=== PATIENT | female | born 1995 | race Caucasian/White ===

== ENCOUNTER 2020-09-08 18:47 | Inpatient (IN) | payer MEDICAID ==
[~2020-09-08] VITALS: Ht 157.5 cm; Wt 86.2 kg
[2020-09-08] MEDS ORDERED: LACTATED RINGERS 1,000 ML IV SCH (19:30)
[2020-09-08] MEDS ORDERED: MISOPROSTOL 100MCG TABLET VG SCH (19:30)
[2020-09-08] MEDS ORDERED: NALOXONE HCL 0.4 MG/ML 1ML VIAL IM PRN (19:30)
[2020-09-08] MEDS ORDERED: METHYLERGONOVINE MALEATE 0.2 MG/ML IM PRN (19:30)
[2020-09-08] MEDS ORDERED: DEXT 5%/LR + PITOCIN 20UNITS/L 1,000 ML IV SCH ×2 (19:30→23:30)
[2020-09-08] MEDS ORDERED: CARBOPROST TROMETHAMINE 250 MCG/ML AMPUL IM PRN (19:30)
[2020-09-08] MEDS ORDERED: MORPHINE SULFATE/PF 1MG/ML 10ML AMP ONE (19:34)
[2020-09-08] MEDS ORDERED: FENTANYL CITRATE/PF 50MCG/ML 2ML VIAL ONE (19:34)
[2020-09-08] MEDS ORDERED: PHENYLEPHRINE HCL 10 MG/ML 1ML (IV VIAL) IV ONE (19:35)
[2020-09-08] MEDS ORDERED: ONDANSETRON HCL 4MG/2ML INJ ONE (19:35)
[2020-09-08] MEDS ORDERED: EPHEDRINE SULFATE 50MG/ML VIAL ONE (19:35)
[2020-09-08] MEDS ORDERED: OXYTOCIN 10 UNITS/ML 1ML ONE ×2 (19:35→21:28)
[2020-09-08] MEDS ORDERED: CEFAZOLIN SODIUM 1000MG/VIAL ONE (19:35)
[2020-09-08] MEDS ORDERED: GLYCOPYRROLATE 0.2 MG/ML 2ML VIAL ONE (19:35)
[2020-09-08] MEDS ORDERED: CITRIC ACID/SODIUM CITRATE SOLN 30ML UDC PO NR (20:00)
[2020-09-08 20:26] LABS: BASOPHILS % 0.3 % (0.0-2.0); EOSINOPHILS % 0.7 % (0.0-5.0); HEMATOCRIT. 38.3 % (36.0-48.0); HEMOGLOBIN. 13.1 g/dL (12.0-16.0); LYMPHOCYTES % 20.7 % (20.0-50.0); MEAN CORPUSCULAR HEMOGLOBIN 31.3 pg (28.0-32.0); MEAN CORPUSCULAR VOLUME 91.4 fL (81.0-99.0); MEAN PLATELET VOLUME 9.5 fl (7.4-10.4); MONOCYTES % 6.8 % (2.0-8.0); NEUTROPHILS % 71.5 % (40.0-76.0); PLATELET 210 x1000/uL (130-400); RED BLOOD CELL COUNT 4.19 mill/uL (4.2-5.4)
[2020-09-08 20:36] LABS: INR 0.9; PARTIAL THROMBOPLASTIN TIME 27.3 sec (23.4-31.0); PROTHROMBIN TIME 9.8 sec (9.6-11.0)
[2020-09-08 20:38] LABS: CLARITY URINE CLEAR (CLEAR); COLOR URINE YELLOW (YELLOW); KETONES URINE TRACE (NEGATIVE); LEUKOCYTE ESTERASE URINE NEGATIVE (NEGATIVE); NITRITE URINE NEGATIVE (NEGATIVE); OCCULT BLOOD URINE NEGATIVE (NEGATIVE); PROTEIN URINE NEGATIVE (NEGATIVE); SPECIFIC GRAVITY URINE 1.022 (1.005-1.030)
[2020-09-08] MEDS ORDERED: KETOROLAC 60MG/2ML VIAL IM ONE (21:27)
[2020-09-08] MEDS ORDERED: DIPHENHYDRAMINE 50MG/ML VIAL ONE (21:27)
[2020-09-08] MEDS ORDERED: NALOXONE HCL 0.4 MG/ML 1ML VIAL IV PRN (21:30)
[2020-09-08] MEDS ORDERED: BUTORPHANOL TARTRATE 2 MG/ML VIAL IV PRN (21:30)
[2020-09-08] MEDS ORDERED: DIPHENHYDRAMINE 50MG/ML VIAL IV PRN (21:30)
[2020-09-08 21:46] LABS: *AMPHETAMINES SCREEN URINE NEGATIVE (NEGATIVE); *BARBITURATES SCREEN URINE NEGATIVE (NEGATIVE); *BENZODIAZEPINES SCREEN URINE NEGATIVE (NEGATIVE)
[2020-09-08 21:47] LABS: *COCAINE SCREEN URINE NEGATIVE (NEGATIVE); CANNABINOID URINE SCREEN NEGATIVE (NEGATIVE); METHADONE URINE SCREEN NEGATIVE (NEGATIVE); OPIATES URINE SCREEN NEGATIVE (NEGATIVE); PHENCYCLIDINE URINE SCREEN NEGATIVE (NEGATIVE)
[2020-09-08 21:52] LABS: HEPATITIS B SURFACE ANTIGEN NEGATIVE
[2020-09-08] MEDS ORDERED: ONDANSETRON HCL 4MG/2ML INJ IV PRN (23:15)
[2020-09-08] MEDS ORDERED: DIPHENHYDRAMINE 25MG CAPSULE PO PRN (23:15)
[2020-09-08] MEDS ORDERED: HEMORRHOIDAL SUPP PR PRN (23:15)
[2020-09-08] MEDS ORDERED: HYDROCODONE/ACETAMINOPHEN 5/325MG TABLET PO PRN (23:15)
[2020-09-08] MEDS ORDERED: BISACODYL 10MG SUPP PR PRN (23:15)
[2020-09-08] MEDS ORDERED: IBUPROFEN 400MG TABLET PO PRN (23:15)
[2020-09-09 00:15] VITALS: BP 123/79
[2020-09-09] MEDS: KETOROLAC 30MG/ML VIAL IV SCH ×2 (01:29→08:49)
[2020-09-09 01:30] VITALS: BP 109/55
[2020-09-09 04:00] VITALS: BP 111/59
[2020-09-09 07:30] VITALS: BP 114/65
[2020-09-09 08:36] LABS: BASOPHILS % 0.2 % (0.0-2.0); EOSINOPHILS % 0.6 % (0.0-5.0); HEMOGLOBIN. 10.5 g/dL (12.0-16.0); LYMPHOCYTES % 18.7 % (20.0-50.0); MEAN CORPUSCULAR VOLUME 91.3 fL (81.0-99.0); MEAN PLATELET VOLUME 9.2 fl (7.4-10.4); MONOCYTES % 7.1 % (2.0-8.0); NEUTROPHILS % 73.4 % (40.0-76.0); PLATELET 169 x1000/uL (130-400); RED BLOOD CELL COUNT 3.29 mill/uL (4.2-5.4); RED CELL DISTRIBUTION WIDTH 14.2 % (11.6-14.6)
[2020-09-09] MEDS: SIMETHICONE 80MG TABLET CHEW PO SCH ×4 (08:48→20:39)
[2020-09-09] MEDS: MAGNESIUM/ALUMINUM HYDROXIDE/SIMETHICONE 30ML UDC PO SCH ×4 (08:48→20:36)
[2020-09-09] MEDS: PRENATAL VIT/FE FUMARATE/FA TABLET PO SCH (08:48)
[2020-09-09] MEDS: FERROUS SULFATE 325MG TABLET PO SCH ×3 (08:49→18:09)
[2020-09-09] MEDS: LANOLIN OINT 7GM TUBE TOP PRN (11:25)
[2020-09-09 15:30] VITALS: BP 121/66
[2020-09-09] MEDS: IBUPROFEN 800MG TABLET PO PRN (18:09)
[2020-09-09 20:00] VITALS: BP 121/70
[2020-09-09] MEDS: DOCUSATE SODIUM 100MG CAPSULE PO SCH (20:36)
[2020-09-10] MEDS: IBUPROFEN 800MG TABLET PO PRN ×4 (04:15→21:04)
[2020-09-10 04:45] VITALS: BP 115/66
[2020-09-10 08:15] VITALS: BP 125/70
[2020-09-10] MEDS: FERROUS SULFATE 325MG TABLET PO SCH ×3 (08:53→18:16)
[2020-09-10] MEDS: PRENATAL VIT/FE FUMARATE/FA TABLET PO SCH (08:53)
[2020-09-10] MEDS: MAGNESIUM/ALUMINUM HYDROXIDE/SIMETHICONE 30ML UDC PO SCH ×4 (08:53→21:04)
[2020-09-10] MEDS: SIMETHICONE 80MG TABLET CHEW PO SCH ×4 (08:53→21:04)
[2020-09-10 16:33] VITALS: BP 122/71
[2020-09-10 20:40] VITALS: BP 136/79
[2020-09-10] MEDS: LANOLIN OINT 7GM TUBE TOP PRN (21:04)
[2020-09-10] MEDS: DOCUSATE SODIUM 100MG CAPSULE PO SCH (21:05)
[2020-09-11] MEDS: IBUPROFEN 800MG TABLET PO PRN ×2 (03:38→11:14)
[2020-09-11 04:00] VITALS: BP 125/78
[2020-09-11 08:00] VITALS: BP 133/73
[2020-09-11] MEDS: FERROUS SULFATE 325MG TABLET PO SCH ×2 (11:13→12:59)
[2020-09-11] MEDS: SIMETHICONE 80MG TABLET CHEW PO SCH ×2 (11:13→12:59)
[2020-09-11] MEDS: PRENATAL VIT/FE FUMARATE/FA TABLET PO SCH (11:14)
[2020-09-11 12:59] VITALS: BP 133/73
== END 2020-09-11 15:45 | disposition home or self-care (01) | DRG 540 ==
LOC: OBSVTOIN 18:47 → 8 EST LDRP 18:47 → 8EST 23:42
PROVIDERS: ADMIT Obstetrics & Gynecology; ATTEND Obstetrics & Gynecology
PROC: 10D00Z1 Extraction of Products of Conception, Low, Open Approach (ICD-10-PCS; principal; 2020-09-08)
DX: O34.211 Maternal care for low transverse scar from previous cesarean delivery (principal); Z37.0 Single live birth; D62 Acute posthemorrhagic anemia; O99.03 Anemia complicating the puerperium; Z3A.00 Weeks of gestation of pregnancy not specified; Z20.822 Contact with and (suspected) exposure to COVID-19
CPT/HCPCS: 36415; 80305; 81003; 85025; 86592; 86703; 86762; 86850; 86900; 87340; 87426; 88307; 99281; J0595; J0690; J1200; J1885; J2274; J2370; J2405; J2590; J3010; J3490; J7120; A4315